=== PATIENT | male | born 1965 | race Caucasian/White ===

== ENCOUNTER → 2020-05-28 | Outpatient (CLI) | payer OTHER ==
--- NOTE | 2020-05-28 10:39 | MR ---
EXAMINATION TYPE: MR lumbar spine wo con DATE OF EXAM: 05/28/2020 COMPARISON: NONE HISTORY: Low back pain TECHNIQUE: T1 and T2 axial and sagittal images of the lumbar spine are submitted. FINDINGS: There is no abnormal signal seen within the visualized spinal cord or paraspinal soft tissu es. At L1-2 there is severe degenerative disc disease with diffuse circumferential disc bulging. Mild margarita ateral foraminal encroachment. At L2-3 there is severe degenerative disc disease with broad-based central disc bulging and mild to m oderate bilateral foraminal encroachment. Mild effacement of thecal sac. Borderline canal stenosis. At L3-4 there is severe degenerative disc disease with broad-based disc bulging greater paracentrally and laterally to the right moderate to severe right-sided foraminal encroachment and mild left rosi inal mild canal stenosis. At L4-5 there is severe degenerative disc disease with facet arthropathy. Focal central disc protrusi on with mild effacement of thecal sac and moderate bilateral foraminal encroachment. Mild central ezequiel nosis noted. At L5-S1 there is severe degenerative disc disease with advanced facet arthropathy. Circumferential d isc bulging with moderate to severe bilateral foraminal encroachment and borderline to mild canal ezequiel nosis. IMPRESSION: 1. Multilevel severe degenerative disc disease and foraminal encroachment with multilevel borderline to mild canal stenosis, disc bulging and hypertrophic facet arthropathy. 2. Mild bladder wall thickening correlate for chronic cystitis.
== END | disposition home or self-care (01) ==
LOC: RADMRIMAIN 08:44
DX: M48.061 Spinal stenosis, lumbar region without neurogenic claudication (principal); M51.26 Other intervertebral disc displacement, lumbar region; M51.36 Other intervertebral disc degeneration, lumbar region; M47.816 Spondylosis without myelopathy or radiculopathy, lumbar region
CPT/HCPCS: 72148